=== PATIENT | female | born 2005 | race Caucasian/White ===

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

== ENCOUNTER 2023-01-14 16:40 | Emergency (ER) | payer BC ==
[2023-01-14 17:10] VITALS: BP 155/86; RESP 16; TEMP 98
[2023-01-14 19:07] LABS: Appearance,Urine Clear (Clear); Basophils % (A) 1 %; Bilirubin,Urine Negative (Negative); Blood,Urine Negative (Negative); Color,Urine Light Yellow; Eosinophils # (A) 0.6 k/uL (0-0.7); Eosinophils % (A) 6 %; Glucose,Urine (UA) Negative (Negative); HGB 14.5 gm/dL (11.4-16.0); Ketones,Urine Negative (Negative); Leukocyte Esterase,Urine Negative (Negative); Lymphocytes # (A) 2.5 k/uL (1.0-4.8); Lymphocytes % (A) 28 %; MCH 28.4 pg (25.0-35.0); MCHC 31.6 g/dL (31.0-37.0); MCV 89.8 fL (80.0-100.0); Mean Platelet Volume 8.3; Monocytes # (A) 0.5 k/uL (0-1.0); Monocytes % (A) 6 %; Neutrophils # (A) 5.3 k/uL (1.3-7.7); Neutrophils % (A) 59 %; Nitrite,Urine Negative (Negative); PH, Urine 6.5 (5.0-8.0); Platelet Count 226 k/uL (150-450); Protein,Urine Negative (Negative); RBC 5.12 m/uL (3.80-5.40); RDW 12.5 % (11.5-15.5); Specific Gravity,Urine 1.013 (1.001-1.035); Urobilinogen,Urine <2.0 mg/dL (<2.0); WBC 9.1 k/uL (4.0-11.0)
[2023-01-14 19:18] LABS: ALT 45 U/L (4-34); AST 39 U/L (14-36); African American GFR (CKD) >90 (>60 ml/min/1.73 sqM); Alkaline Phosphatase 105 U/L (38-126); Anion Gap 11 mmol/L; Blood Urea Nitrogen 15 mg/dL (7-17); Calcium 9.9 mg/dL (8.4-10.2); Carbon Dioxide 26 mmol/L (22-30); Chloride 102 mmol/L (98-107); Glucose 94 mg/dL (74-99); Non-African American GFR(CKD) >90 (>60 ml/min/1.73 sqM); Sodium 139 mmol/L (137-145); Total Bilirubin 0.7 mg/dL (0.2-1.3); Total Protein 8.1 g/dL (6.3-8.2)
--- NOTE | 2023-01-14 19:38 | ED ---
General Adult HPI - General Chief complaint: Abdominal Pain Stated complaint: R side pain Time Seen by Provider: 01/14/23 18:28 Source: patient Mode of arrival: ambulatory Limitations: no limitations - History of Present Illness Initial comments: Dictation was produced using [employer] dictation software. please excuse any grammatical, word or spelling errors. Chief Complaint: 17-year-old female presents with right lower quadrant abdominal pain History of Present Illness: Patient is a 17-year-old female presents emergency Department with right lower quadrant abdominal pain. She states that she has a history of endometriosis. Diagnosed by LEAD MOBILE DEVELOPER without any imaging. Patient will last 7 days has been having right lower quadrant abdominal pain. No nausea vomiting or fever. She is no history of ovarian cyst. Patient's are primary care doctor and LEAD MOBILE DEVELOPER and told her to come to the ER for further care. The ROS documented in this emergency department record has been reviewed and confirmed by me. Those systems with pertinent positive or negative responses have been documented in the HPI. All other systems are other negative and/or noncontributory. - Related Data Allergies Allergy/AdvReac Type Severity Reaction Status Date / Time tree nut Allergy Unknown Verified 01/14/23 17:10 Review of Systems ROS Statement: Those systems with pertinent positive or pertinent negative responses have been documented in the HPI. ROS Other: All systems not noted in ROS Statement are negative. Past Medical History Additional Past Medical History / Comment(s): endometriosis History of Any Multi-Drug Resistant Organisms: None Reported Past Surgical History: No Surgical Hx Reported Past Psychological History: No Psychological Hx Reported Smoking Status: Never smoker Past Alcohol Use History: None Reported Past Drug Use History: None Reported General Exam - General Exam Comments Initial Comments: PHYSICAL EXAM: General Impression: Alert and oriented x3, not in acute distress HEENT: Normocephalic atraumatic, extra-ocular movements intact, pupils equal and reactive to light bilaterally, mucous membranes moist. Cardiovascular: Heart regular rate and rhythm Chest: Able to complete full sentences, no retractions, no tachypnea Abdomen: abdomen soft, pain at McBurney's point with positive rebound, non- distended, no organomegaly Musculoskeletal: Pulses present and equal in all extremities, no peripheral edema Motor: no focal deficits noted Neurological: CN II-XII grossly intact, no focal motor or sensory deficits noted Skin: Intact with no visualized rashes Psych: Normal affect and mood Limitations: no limitations Course Vital Signs 01/14/23 17:07 Temperature 98 F Pulse Rate 112 H Respiratory 16 Rate Blood Pressure 155/86 O2 Sat by Pulse 100 Oximetry Medical Decision Making - Medical Decision Making Was pt. sent in by a medical professional or institution (, PA, GUN NUMBER, urgent care, hospital, or correction...) When possible be specific @ -No Did you speak to anyone other than the patient for history (EMS, parent, family, police, friend...)? What history was obtained from this source @ -No Did you review nursing and triage notes (agree or disagree)? Why? @ -I reviewed and agree with nursing and triage notes Were old charts reviewed (outside hosp., previous admission, EMS record, old EKG, old radiological studies, urgent care reports/EKG's, correction records)? Report findings @ -No old charts were reviewed Differential Diagnosis (chest pain, altered mental status, abdominal pain women, abdominal pain men, vaginal bleeding, musculoskeletal, weakness, fever, dyspnea, syncope, headache, dizziness, GI bleed, back pain, seizure, CVA, palpatations, mental health)? @ -Differential Abdominal Pain Women: Appendicitis, Cholecystitis, diverticulosis, ischemic bowel, pancreatitis, hepatitis, UTI, gastroenteritis, AAA, incarcerated hernia, bowel obstruction, constipation, inflammatory bowel, hepatitis, peptic ulcer disease, splenic infarction, perforated viscus, vulvitis, ovarian torsion, PID, kidney stone, placenta abruption, this is not meant to be an all-inclusive list EKG interpreted by me (3pts min.). @ -None done X-rays interpreted by me (1pt min.). @ -None done CT interpreted by me (1pt min.). @ -Nonspecific enteritis U/S interpreted by me (1pt. min.). @ -None done What testing was considered but not performed or refused? (CT, X-rays, U/S, labs)? Why? @ -None What meds were considered but not given or refused? Why? @ -None Did you discuss the management of the patient with other professionals (prof aristeo i.e. , JAKE, GUN NUMBER, lab, RT, psych nurse, social services analyst, general utility maintenance repairer, teacher, correction officer reformatory, behavioral health case manager)? Give summary @ -No Was smoking cessation discussed for >3mins.? @ -No Was critical care preformed (if so, how long)? @ -No Were there social determinants of health that impacted care today? How? (Homelessness, low income, unemployed, alcoholism, drug addiction, transportat ion, low edu. Level, literacy, decrease access to med. care, [facility], rehab)? @ -No Was there de-escalation of care discussed even if they declined (Discuss DNR or withdrawal of care, Hospice)? DNR status @ -No What co-morbidities impacted this encounter? (DM, HTN, Smoking, COPD, CAD, Cancer, CVA, ARF, Chemo, Hep., AIDS, mental health diagnosis, sleep apnea, morbid obesity)? @ -None Was patient admitted / discharged? Hospital course, mention meds given and route, prescriptions, significant lab abnormalities, going to OR and other pertinent info. @ -17 y Old female with right lower quadrant abdominal pain. Vital signs upon arrival are within acceptable limits. Labs unremarkable. Urinalysis is negative. CT shows nonspecific enteritis. Appendix is visualized showing no acute appendicitis. No large right ovarian mass. Advised follow-up with primary care doctor. Patient discharged Undiagnosed new problem with uncertain prognosis? @ -No Drug Therapy requiring intensive monitoring for toxicity (Heparin, Nitro, Insulin, Cardizem)? @ -No Were any procedures done? @ -No Diagnosis/symptom? Acute, or Chronic, or Acute on Chronic? Uncomplicated (without systemic symptoms) or Complicated (systemic symptoms)? @ -1. Acute uncomplicated abdominal pain Side effects of treatment? @ -No Exacerbation, Progression, or Severe Exacerbation? @ -No Poses a threat to life or bodily function? How? (Chest pain, USA, GA, pneumonia, PE, COPD, DKA, ARF, appy, cholecystitis, CVA, Diverticulitis, Homicidal, Suicidal, threat to staff... and all critical care pts) @ -No - Lab Data Result diagrams: 01/14/23 18:34 01/14/23 18:34 Lab Results 01/14/23 01/14/23 01/14/23 Range/Units 18:34 18:34 18:34 WBC 9.1 (4.0-11.0) k/uL RBC 5.12 (3.80-5.40) m/uL Hgb 14.5 (11.4-16.0) gm/dL Hct 46.0 (34.0-46.0) % MCV 89.8 (80.0-100.0) fL MCH 28.4 (25.0-35.0) pg MCHC 31.6 (31.0-37.0) g/dL RDW 12.5 (11.5-15.5) % Plt Count 226 (150-450) k/uL MPV 8.3 Neutrophils % 59 % Lymphocytes % 28 % Monocytes % 6 % Eosinophils % 6 % Basophils % 1 % Neutrophils # 5.3 (1.3-7.7) k/uL Lymphocytes # 2.5 (1.0-4.8) k/uL Monocytes # 0.5 (0-1.0) k/uL Eosinophils # 0.6 (0-0.7) k/uL Basophils # 0.0 (0-0.2) k/uL Sodium (137-145) mmol/L Potassium (3.5-5.1) mmol/L Chloride (98-107) mmol/L Carbon Dioxide (22-30) mmol/L Anion Gap mmol/L BUN (7-17) mg/dL Creatinine (0.52-1.04) mg/dL Est GFR (CKD-EPI)AfAm (>60 ml/min/1.73 sqM) Est GFR (CKD-EPI)NonAf (>60 ml/min/1.73 sqM) Glucose (74-99) mg/dL Calcium (8.4-10.2) mg/dL Total Bilirubin (0.2-1.3) mg/dL AST (14-36) U/L ALT (4-34) U/L Alkaline Phosphatase (38-126) U/L Total Protein (6.3-8.2) g/dL Albumin (3.5-5.0) g/dL Urine Color Light Yellow Urine Appearance Clear (Clear) Urine pH 6.5 (5.0-8.0) Ur Specific [place] 1.013 (1.001-1.035) Urine Protein Negative (Negative) Urine Glucose (UA) Negative (Negative) Urine Ketones Negative (Negative) Urine Blood Negative (Negative) Urine Nitrite Negative (Negative) Urine Bilirubin Negative (Negative) Urine Urobilinogen <2.0 (<2.0) mg/dL Ur Leukocyte Esterase Negative (Negative) Urine HCG, Qual Not Detected (Not Detectd) 01/14/23 Range/Units 18:34 WBC (4.0-11.0) k/uL RBC (3.80-5.40) m/uL Hgb (11.4-16.0) gm/dL Hct (34.0-46.0) % MCV (80.0-100.0) fL MCH (25.0-35.0) pg MCHC (31.0-37.0) g/dL RDW (11.5-15.5) % Plt Count (150-450) k/uL MPV Neutrophils % % Lymphocytes % % Monocytes % % Eosinophils % % Basophils % % Neutrophils # (1.3-7.7) k/uL Lymphocytes # (1.0-4.8) k/uL Monocytes # (0-1.0) k/uL Eosinophils # (0-0.7) k/uL Basophils # (0-0.2) k/uL Sodium 139 (137-145) mmol/L Potassium 4.6 (3.5-5.1) mmol/L Chloride 102 (98-107) mmol/L Carbon Dioxide 26 (22-30) mmol/L Anion Gap 11 mmol/L BUN 15 (7-17) mg/dL Creatinine 0.65 (0.52-1.04) mg/dL Est GFR (CKD-EPI)AfAm >90 (>60 ml/min/1.73 sqM) Est GFR (CKD-EPI)NonAf >90 (>60 ml/min/1.73 sqM) Glucose 94 (74-99) mg/dL Calcium 9.9 (8.4-10.2) mg/dL Total Bilirubin 0.7 (0.2-1.3) mg/dL AST 39 H (14-36) U/L ALT 45 H (4-34) U/L Alkaline Phosphatase 105 (38-126) U/L Total Protein 8.1 (6.3-8.2) g/dL Albumin 5.0 (3.5-5.0) g/dL Urine Color Urine Appearance (Clear) Urine pH (5.0-8.0) Ur Specific [place] (1.001-1.035) Urine Protein (Negative) Urine Glucose (UA) (Negative) Urine Ketones (Negative) Urine Blood (Negative) Urine Nitrite (Negative) Urine Bilirubin (Negative) Urine Urobilinogen (<2.0) mg/dL Ur Leukocyte Esterase (Negative) Urine HCG, Qual (Not Detectd) Disposition Clinical Impression: Abdominal pain Disposition: HOME SELF-CARE Condition: Good Instructions (If sedation given, give patient instructions): Abdominal Pain (ED) Is patient prescribed a controlled substance at d/c from ED?: No Referrals: Nika Valdez MD [Primary Care Provider] - 1-2 days Time of Disposition: 20:33
[2023-01-14 19:39] LABS: Potassium 4.6 mmol/L (3.5-5.1)
--- NOTE | 2023-01-14 20:05 | CT ---
EXAMINATION TYPE: CT abdomen pelvis w con DATE OF EXAM: 01/14/2023 COMPARISON: NONE HISTORY: 17 year-old female with right lower quadrant pain, suspect acute appendicitis TECHNIQUE: Contiguous axial scanning of the abdomen and pelvis following administration of 100 ml Iso cierra 300 IV contrast. Delayed images through the kidneys and coronal/sagittal reconstructions perform ed. CT DLP: 590.3 mGycm Automated exposure control for dose reduction was used. FINDINGS: Heart normal size without pericardial effusion. Lung bases clear without pleural effusion. No focal liver lesion or biliary ductal dilatation. Portal venous system is patent. Gallbladder, adrenal glands, kidneys, and pancreas within normal limits. Spleen is borderline in size at 13.6 cm. There is some scattered prominent mesenteric lymph nodes measuring up to 7 mm. Prominent fluid-filled small bowel loops in the mid to lower abdomen and pelvis. No dilated small bowel, free fluid, or gorge e air. The cecum and low in the pelvis. Segments of a normal appendix are visualized. Scattered mild stool. No pericolonic inflammatory change seen. Bladder distended. Uterus anteverted. Both ovaries are visualized. 1.9 cm dominant follicle or functi onal cyst of the right ovary. Trace cul-de-sac free fluid. No pelvic lymphadenopathy seen. Bones: No osseous destructive process. IMPRESSION: 1. PROMINENT FLUID-FILLED SMALL BOWEL LOOPS IN THE MID TO LOWER ABDOMEN AND PELVIS. CORRELATE FOR NON SPECIFIC ENTERITIS. 2. SEGMENTS OF A NORMAL APPENDIX ARE VISUALIZED. FINDINGS ARGUE AGAINST ACUTE APPENDICITIS. 3. TRACE CUL-DE-SAC FREE FLUID LIKELY PHYSIOLOGIC. A 1.9 CM DOMINANT FOLLICLE OR FUNCTIONAL CYST OF T HE RIGHT OVARY.
[2023-01-14 21:43] VITALS: PULSE 92
[2023-01-14] MEDS ORDERED: ACET/COD 300 MG/30 MG STARTER PACK 6 TAB BTL PO STA (21:48)
== END 2023-01-14 21:43 | disposition home or self-care (01) ==
LOC: EC 16:40
DX: N83.201 Unspecified ovarian cyst, right side (principal); Z91.018 Allergy to other foods
CPT/HCPCS: 99284 ×2; 36415; 80053; 85025; 81003; 81025; 74177; Q9967

== ENCOUNTER → 2023-02-05 | Outpatient (CLI) | payer BC ==
[2023-02-05 21:32] LABS: Basophils # (A) 0.05 X 10*3/uL (0.00-0.10); Basophils % (A) 0.7 %; Eosinophils # (A) 0.42 X 10*3/uL (0.04-0.35); Eosinophils % (A) 5.5 %; HCT 42.6 % (37.2-46.3); HGB 13.3 g/dL (12.0-15.0); Immature Grans, Automated 0.9 %; Lymphocytes # (A) 2.76 X 10*3/uL (0.90-5.00); Lymphocytes % (A) 36.1 %; MCH 28.3 pg (27.0-32.0); MCHC 31.2 g/dL (32.0-37.0); MCV 90.6 fL (80.0-97.0); Mean Platelet Volume 11.1 fL (9.5-12.2); Monocytes # (A) 0.55 X 10*3/uL (0.20-1.00); Monocytes % (A) 7.2 %; NRBC Per 100 WBC 0 /100 WBCS (0.0-0.0); Neutrophils # (A) 3.79 X 10*3/uL (1.80-7.70); Neutrophils % (A) 49.6 %; Platelet Count 203 X 10*3/uL (140-440); RDW 12.7 % (11.5-14.5); WBC 7.64 X 10*3/uL (4.50-10.00)
[2023-02-05 21:59] LABS: Erythrocyte Sedimentation Rate 2 mm/Hr (0-20)
[2023-02-05 22:52] LABS: ALT 35 U/L (8-44); AST 26 U/L (13-35); African American GFR (CKD) 130.3 (60.0-200.0); Albumin 4.7 g/dL (3.8-4.9); Albumin/Globulin Ratio 2.41 (1.60-3.17); Alkaline Phosphatase 105 U/L (41-126); BUN/Creat Ratio 14.86 Ratio (12.00-20.00); Blood Urea Nitrogen 11.4 mg/dL (9.0-27.0); C Reactive Protein <0.30 mg/dL (0.00-0.80); Calcium 9.8 mg/dL (8.7-10.3); Carbon Dioxide 28.3 mmol/L (20.0-27.5); Chloride 104 mmol/L (96-109); Globulin 1.9 g/dL (1.6-3.3); Glucose 82 mg/dL (70-110); Non-African American GFR(CKD) 112.5 (60.0-200.0); Potassium 4.4 mmol/L (3.5-5.5); Sodium 142 mmol/L (135-145); Total Protein 6.6 g/dL (6.2-8.2)
== END | disposition home or self-care (01) ==
LOC: LABWHC1 12:41
PROVIDERS: ATTEND Nurse Practitioner Family
DX: K52.9 Noninfective gastroenteritis and colitis, unspecified (principal)
CPT/HCPCS: 36415; 80053; 85025; 85652; 86140

== ENCOUNTER → 2023-07-09 | Outpatient (CLI) | payer BC ==
[2023-07-09 19:13] LABS: ALT 38 U/L (8-44); AST 27 U/L (13-35); Albumin 4.5 d/dL (3.8-4.9); Albumin/Globulin Ratio 2.37 Ratio (1.60-3.17); Alkaline Phosphatase 112 U/L (41-126); BUN/Creat Ratio 18.57 Ratio (12.00-20.00); Calcium 9.7 mg/dL (8.7-10.3); Carbon Dioxide 27.6 mmol/L (21.6-31.8); Chloride 106 mmol/L (96-109); GGT 20 U/L (0-38); Globulin 1.9 d/dL (1.6-3.3); Glucose 91 mg/dL (70-110); Potassium 4.2 mmol/L (3.5-5.5); Sodium 144 mmol/L (135-145); Total Bilirubin 0.4 mg/dL (0.3-1.2); Total Protein 6.4 d/dL (6.2-8.2)
[2023-07-09 21:41] LABS: Hepatitis A Antibody IgM Nonreactive; Hepatitis B Core IgM Nonreactive; Hepatitis B Surface Antigen Nonreactive; Hepatitis C IgG Antibody Nonreactive
== END | disposition home or self-care (01) ==
LOC: LABWHC1 11:52
PROVIDERS: ATTEND Family Medicine
DX: Z00.00 Encounter for general adult medical examination without abnormal findings (principal); E53.8 Deficiency of other specified B group vitamins; R79.89 Other specified abnormal findings of blood chemistry; R00.0 Tachycardia, unspecified
CPT/HCPCS: 36415; 80053; 80074; 82607; 82746; 82977; 83735; 86480

== ENCOUNTER → 2023-07-12 | Outpatient (CLI) | payer BC ==
--- NOTE | 2023-07-17 10:25 | HM ---
HOLTER MONITOR REPORT The patient was monitored for 48 hours. CLINICAL INFORMATION: The baseline rhythm is sinus mechanism with normal conduction. The average rate is 91 beats per minute, minimum 67, maximum 177 beats per minute. Ventricular ectopic activity was present in the form of rare single PVCs. Supraventricular ectopic activity was not present. Symptoms of heart pounding, fast heartbeat, dizzy, skipped beat did not correlate with any dysrhythmia. CONCLUSION: 1. Sinus mechanism baseline rhythm. 2. Rare ventricular ectopic activity. 3. No supraventricular ectopic activity. 4. Symptoms did not correlate with any dysrhythmia. MMODL / IJN: [id number] /
== END | disposition home or self-care (01) ==
LOC: RADECHMAIN 07:52
PROVIDERS: ATTEND Family Medicine
DX: I49.9 Cardiac arrhythmia, unspecified (principal); I49.3 Ventricular premature depolarization; R00.0 Tachycardia, unspecified
CPT/HCPCS: 93225; 93226

== ENCOUNTER → 2023-07-19 | Outpatient (CLI) | payer BC | END | disposition home or self-care (01) | LOC: LABWHC1 13:45 | PROVIDERS: ATTEND Nurse Practitioner Family | DX: Z00.00 Encounter for general adult medical examination without abnormal findings (principal); E53.8 Deficiency of other specified B group vitamins; R79.89 Other specified abnormal findings of blood chemistry; R00.0 Tachycardia, unspecified | CPT/HCPCS: 36415; 82746 ==

== ENCOUNTER → 2023-08-08 | Outpatient (CLI) | payer BC ==
[2023-08-08 16:17] LABS: Basophils # (A) 0.05 X 10*3/uL (0.00-0.10); Basophils % (A) 0.8 %; Eosinophils # (A) 0.28 X 10*3/uL (0.04-0.35); Eosinophils % (A) 4.5 %; HCT 44.8 % (37.2-46.3); HGB 14.3 g/dL (12.0-15.0); Lymphocytes # (A) 2.63 X 10*3/uL (0.90-5.00); Lymphocytes % (A) 42.7 %; MCH 28.2 pg (27.0-32.0); MCHC 31.9 g/dL (32.0-37.0); MCV 88.4 FL (80.0-97.0); Mean Platelet Volume 10.9 FL (9.5-12.2); Monocytes % (A) 6.5 %; NRBC Per 100 WBC 0 X 10*3/uL (0.00-0.01); Neutrophils # (A) 2.79 X 10*3/uL (1.80-7.70); Neutrophils % (A) 45.3 %; Platelet Count 207 X 10*3/uL (140-440); RBC 5.07 X 10*6/uL (4.10-5.20); RDW 12.5 % (11.5-14.5); WBC 6.16 X 10*3/uL (4.50-10.00)
== END | disposition home or self-care (01) ==
LOC: LABPAT 12:45
PROVIDERS: ATTEND Obstetrics & Gynecology Obstetrics
DX: Z01.812 Encounter for preprocedural laboratory examination (principal); R10.31 Right lower quadrant pain; R10.2 Pelvic and perineal pain
CPT/HCPCS: 85025

== ENCOUNTER 2023-08-23 10:29 | Day surgery (SDC) | payer BC ==
--- NOTE | 2023-08-23 08:47 | P.HPOB ---
History of Present Illness H&P Date: 08/23/23 Chief Complaint: Pelvic pain, failed medical treatment This is a 17-year-old 0 that presented to the office with multiple complaints including right lower quadrant pain, pelvic pain. Patient has been treated for presumed endometriosis with or less. Patient states pain has been better but she still notes pain. Patient has been seen by GI and had a diagnosis of food ALLERGIES and inflammation. Patient has been receiving ALLERGY injections secondary to these diagnoses. Patient notes menstrual cycles to be regular. Given continued pain despite medical treatment with orlissa,(and ocp prior to that) patient and her mother wish diagnostic laparoscopy to evalu ate pelvic anatomy. Review of Systems Constitutional: Denies chills, Denies fatigue, Denies fever Ears, nose, mouth and throat: Denies headache Cardiovascular: Denies leg edema Respiratory: Denies dyspnea Gastrointestinal: Reports abdominal pain, Denies constipation, Denies diarrhea, Denies nausea, Denies vomiting Genitourinary: Reports dysmenorrhea Menstruation: Reports period normal Past Medical History Past Medical History: GERD/Reflux Additional Past Medical History / Comment(s): endometriosis, History of Any Multi-Drug Resistant Organisms: None Reported Past Surgical History: No Surgical Hx Reported Additional Past Surgical History / Comment(s): colonoscopy upper endo wisdom teeth extraction Past Anesthesia/Blood Transfusion Reactions: No Reported Reaction Smoking Status: Never smoker Medications and Allergies Home Medications Medication Instructions Recorded Confirmed Type Acetaminophen-Codeine 300-30mg 1 - 2 tab PO Q4-6H PRN 08/20/23 08/20/23 History [Tylenol w/codeine #3] Albuterol Inhaler [Ventolin Hfa 1 - 2 puff INHALATION Q6H PRN 08/20/23 08/20/23 History Inhaler] EPINEPHrine (Auto Inject) [Epipen] 1 dose INJ DIRECTED PRN 08/20/23 08/20/23 History Elagolix Sodium [Orilissa] 150 mg PO DAILY 08/20/23 08/20/23 History Escitalopram [Lexapro] 10 mg PO DAILY 08/20/23 08/20/23 History Ondansetron [Zofran] 4 mg PO Q8HR PRN 08/20/23 08/20/23 History Phentermine HCl 1 tab PO DAILY 08/20/23 08/20/23 History Allergies Allergy/AdvReac Type Severity Reaction Status Date / Time tree nut Allergy Unknown Verified 08/20/23 12:14 Exam Osteopathic Statement: *. No significant issues noted on an osteopathic structural exam other than those noted in the History and Physical/Consult. Targeted physical exam is performed in this date and facility maintenance mechanic a well-nourished well-developed non female in no acute distress, breathing is noted to be nonlabored, heart has a regular rate and rhythm, abdomen is soft and nontender no rebound is appreciated. On genitourinary exam and external genitalia is noted to be normal for age the vaginal mucosa was noted to be pink and well rugated, limited pelvic exam is obtained secondary to discomfort. Assessment and Plan (1) Pelvic pain Status: Acute Code(s): R10.2 - PELVIC AND PERINEAL PAIN SNOMED Code(s): 19290284 Plan: 17-year-old 0 with continued pelvic pain, suspected endometriosis despite treatment with oral contraceptive pills, or less. Patient is desirous of diagnostic laparoscopy for evaluation of endometriosis. Surgery is reviewed and risks are discussed including but not limited to infection, bleeding, damage to bladder, bowel, ureteric injury. Patient is understanding of these risks and wishes to proceed with diagnostic laparoscopy possible fulguration of endometriosis.
[~2023-08-23 10:29] MED LIST: DEXAMETHASONE SOD PHOSPHATE 4 MG/ML 1 ML VIAL IV ONE; LIDOCAINE 1% (10MG/ML) FOR IV START INTRADERMA PRN; ONDANSETRON 4 MG/2 ML VIAL IVP ONE; Pre Op ABX Message 1 EACH MISC MISCELLANE ONE; SCOPOLAMINE 1 MG/72 HR PATCH TRANSDERM ONE; droPERidol 5 MG/2 ML VIAL IVP ONE
[2023-08-23] MEDS: LACTATED RINGERS 1,000 ML IV SCH ×2 (11:29→14:41)
[2023-08-23] MEDS ORDERED: BUPIVACAINE (PF) 0.25% 30 ML VIAL SQ ONE ×2 (12:15→13:24)
[2023-08-23] MEDS ORDERED: PROPOFOL 10 MG/ML 20 ML VIAL IV ONE (12:48)
[2023-08-23] MEDS ORDERED: MIDAZOLAM 2 MG/2 ML VIAL ONE (12:48)
[2023-08-23] MEDS ORDERED: diphenhydrAMINE 50 MG/ML 1 ML VIAL ONE (12:48)
[2023-08-23] MEDS ORDERED: SUCCINYLCHOLINE CHLORIDE 200 MG/10 ML VIAL IV ONE (12:48)
[2023-08-23] MEDS ORDERED: LIDOCAINE 1% INJ 10MG/ML (20 ML MDV) ONE (12:48)
[2023-08-23] MEDS ORDERED: ROCURONIUM 10 MG/ML (5 ML VIAL) IV ONE (12:48)
[2023-08-23] MEDS ORDERED: ACETAMINOPHEN IV (For NPO) 1,000 MG/100 ML VIAL ONE (12:48)
[2023-08-23] MEDS ORDERED: fentaNYL (PF) 50 MCG/ML 2 ML AMP ONE (12:48)
[2023-08-23] MEDS ORDERED: GLYCOPYRROLATE 0.2 MG/ML 2 ML VIAL ONE (12:48)
[2023-08-23] MEDS ORDERED: NEOSTIGMINE 1 MG/ML 10 ML VIAL ONE (12:48)
--- NOTE | 2023-08-23 13:40 | P.OP ---
Date of Procedure: 08/23/23 Preoperative Diagnosis: Pelvic pain, suspected endometriosis, right lower quadrant pain. Failed medical treatment Postoperative Diagnosis: Same Procedure(s) Performed: Diagnostic laparoscopy Anesthesia: FLASH Surgeon: Maryanne Valle Estimated Blood Loss (ml): 5 IV fluids (ml): 500 Urine output (ml): 100 Pathology: none sent Condition: stable Disposition: PACU Indications for Procedure: Pelvic pain, failed medical treatment Operative Findings: Normal pelvic anatomy Description of Procedure: She was taken back to the operating suite where general anesthesia was was obtained without difficulty by the anesthesia department. She was prepped and draped in normal sterile fashion in the dorsal lithotomy position. A red rubber catheter was then used to drain the bladder of clear yellow urine. A speculum was placed and the anterior lip of the cervix was visualized. An acorn uterine manipulator was advanced into the cervix as a means to miniplate the uterus throughout the procedure. Attention was then turned the patient's abdomen where approximately 1 finger breaths above the umbilicus a small skin incision is made. Through this incision the Veress needles placed. Once the Veress needle is deemed to be in the proper position with a drop of CO2 pressure with insufflation of CO2 gas, insufflation of CO2 gas was allowed to occur. Proximally 3 L of gas or used to obtain pneumoperitoneum. At this time a 5 trocar and sleeve with the laparoscope in place placed through the skin incision and toward the pneumoperitoneum. An additional port sites placement right mid abdomen this is a 5 mm trocar and sleeve placed under direct visualization. The above-noted findings are visualized. The colon was noted to be distended with stool, the appendix was visualized and found to be normal. Multiple pictures were taken and all instruments were removed from the patient's abdomen. The skin incisions were closed with 4-0 Vicryl in a circular fashion. Steri-Strips and sterile dressings were applied. All counts were correct 2 at the end of the procedure.
[2023-08-23] MEDS: HYDROmorphone 0.5 MG/0.5 ML SYRINGE IVP PRN ×2 (13:52→14:10)
[2023-08-23 13:58] VITALS: TEMP 97
[2023-08-23 15:13] VITALS: PULSE 114; RESP 16
[2023-08-23 15:37] VITALS: BP 149/95
== END 2023-08-23 15:37 | disposition home or self-care (01) ==
LOC: OR 10:29
PROVIDERS: ATTEND Obstetrics & Gynecology Obstetrics
DX: R10.2 Pelvic and perineal pain (principal); J45.909 Unspecified asthma, uncomplicated; K21.9 Gastro-esophageal reflux disease without esophagitis; Z91.018 Allergy to other foods; Z79.899 Other long term (current) drug therapy; Z79.51 Long term (current) use of inhaled steroids
CPT/HCPCS: 81025; 49320; J2250; J0330; J1200; J1100; J2710; J2405; J2001; J3010; J0131; J2704; J1170; J1790; J0665

== ENCOUNTER → 2024-01-15 | Outpatient (CLI) | payer OTHER ==
--- NOTE | 2024-01-15 11:36 | XR ---
EXAMINATION TYPE: XR shoulder complete 3 views LT DATE OF EXAM: 01/15/2024 Comparison: None Clinical History: 18-year-old female S46.912A STRAIN UNSP MUSC/FASC/TEND AT SHLDR/UP AR Findings: AC joint appears congruent and intact. Subacromial space is preserved. No tendinous or bursal calcifi cations. No acute fracture, subluxation, dislocation. Impression: No acute osseous abnormality seen.
== END | disposition home or self-care (01) ==
LOC: RADXRMAIN 10:17
PROVIDERS: ATTEND Emergency Medicine
DX: S46.912A Strain of unspecified muscle, fascia and tendon at shoulder and upper arm level, left arm, initial encounter (principal)

== ENCOUNTER → 2024-01-17 | Outpatient (CLI) | payer OTHER ==
--- NOTE | 2024-01-19 19:05 | MR ---
EXAMINATION TYPE: MR shoulder LT wo con DATE OF EXAM: 01/17/2024 COMPARISON: Radiograph 01/15/2024 HISTORY: 18-year-old female Left shoulder pain, limited ROM S/P injury on 01-15-24. S46.912A STRAIN UN SP MUSC/FASC/TEND AT SHLDR/UP AR TECHNIQUE: Multiplanar, multisequence imaging of the left shoulder is performed without contrast. FINDINGS: The long head biceps tendon is intact and appropriately situated along the bicipital groove . The subscapularis tendon is intact. While the AC joint is congruent, there is subchondral edema and trace joint effusion at the AC joint. No discrete fracture is seen. Trace thickening of the anterior subacromial/subdeltoid bursa without fluid distention. Both supraspinatus and infraspinatus tendons are intact. The glenohumeral joint appears intact without joint effusion. There is some deficiency of the posterior inferior glenoid rim with some focal 4 x 4 mm focus of flui d intensity at the labral chondral junction. Unclear if this reflects mild glenoid dysplasia or an un derlying posterior inferior labral tear. Preserved rotator cuff muscle volume. No Hill-Sachs deformity or os acromiale. No suspicious bone marrow replacement. IMPRESSION: 1. Osseous edema at the AC joint with trace joint effusion. Consider a bony contusion or mild AC join t sprain. 2. 4 x 4 mm focus of fluid signal intensity at the posterior inferior glenoid rim. Unclear if this re flects mild glenoid dysplasia or a small underlying posterior inferior labral tear. 3. No rotator cuff tear or other specific abnormality seen.
== END | disposition home or self-care (01) ==
LOC: RADMRIMAIN 12:08
PROVIDERS: ATTEND Emergency Medicine
DX: M25.412 Effusion, left shoulder (principal); S46.912A Strain of unspecified muscle, fascia and tendon at shoulder and upper arm level, left arm, initial encounter; X58.XXXA Exposure to other specified factors, initial encounter

== ENCOUNTER → 2024-08-28 | Outpatient (CLI) | payer BC ==
--- NOTE | 2024-08-28 13:03 | US ---
EXAMINATION TYPE: US gallbladder DATE OF EXAM: 08/28/2024 COMPARISON: NONE CLINICAL INDICATION: Female, 18 years old with history of R10.11 RIGHT UPPER QUADRANT PAIN; RUQ pain TECHNIQUE: Grayscale and color Doppler imaging of the right upper quadrant was performed. FINDINGS: EXAM MEASUREMENTS: Liver Length: 14.4 cm Gallbladder Wall: 0.1 cm CBD: 0.3 cm Right Kidney: 9.4x3.9x5.1 cm COUNTER CHECKER NOTES: Pancreas: Tail obscured by overlying bowel gas Liver: wnl Gallbladder: wnl Evidence for sonographic Quezada's sign: No CBD: wnl Right Kidney: wnl IMPRESSION: No evidence for acute process. [facility], , 08/28/2024 1:00 PM
== END | disposition home or self-care (01) ==
LOC: RADUSWWP 10:40
PROVIDERS: ATTEND Family Medicine
DX: R10.11 Right upper quadrant pain (principal)
CPT/HCPCS: 76705